=== PATIENT | female | born 1950 | race Caucasian/White ===

== ENCOUNTER 2016-10-12 16:13 | Emergency (ER) | payer OTHER ==
[~2016-10-12] VITALS: Ht 162.6 cm; Wt 83.0 kg
[2016-10-12 16:41] VITALS: BP 150/98
--- NOTE | 2016-10-12 20:35 | NUR ---
PATIENT LEFT WITHOUT BEING SEEN BY DR. RINCON. NO FURTHER CARE PROVIDED FOR PATIENT.
== END 2016-10-12 20:20 | disposition left against medical advice (07) ==
LOC: MED 16:13
DX: R33.9 Retention of urine, unspecified (principal); Z53.21 Procedure and treatment not carried out due to patient leaving prior to being seen by health care provider